=== PATIENT | male | born 1980 | race American Indian/Alaskan Native ===

== ENCOUNTER 2021-08-26 01:20 | Emergency (ER) | payer OTHER ==
[2021-08-26] MEDS ORDERED: HYDROcodone/ACETAMINOPHEN 7.5-325MG TAB PO ONE (01:30)
[2021-08-26] MEDS ORDERED: predniSONE 20 MG TAB PO ONE (01:30)
[2021-08-26] MEDS ORDERED: CLINDAMYCIN 150 MG CAP PO ONE (01:30)
[2021-08-26] MEDS ORDERED: diphenhydrAMINE 25 MG CAP PO ONE (01:31)
[2021-08-26] MEDS ORDERED: FAMOTIDINE 20 MG TAB PO ONE (01:31)
[2021-08-26] MEDS ORDERED: ONDANSETRON 4 MG ODT TAB PO ONE (01:31)
[2021-08-26 01:45] VITALS: BP 156/89
--- NOTE | 2021-08-26 02:05 | Emergency Department Report ---
ED General Adult HPI - General Chief complaint: Allergic Reaction Stated complaint: ALLERGIC REACTION Source: patient Mode of arrival: Ambulatory Limitations: No Limitations - History of Present Illness Initial comments: Patient is a 40-year-old -[place] male with no past medical history presented to the ED with complaint of acute onset persistent painful swollen right mandibular gingiva with premolar and molar toothache for the last 12 hours. Patient states that he has not been able to eat anything because of persistent pain. Patient states that in the last 6 hours, the swelling of the right cheek got worse. Patient denies swollen throat, dysphagia, dysphonia, sore throat, nausea and vomiting, chest pain or shortness of breath, dizziness, syncope, cough, itchy rashes. MD Complaint: swollen gums; swollen lip and dental pain -: Sudden, hour(s) (12) Location: mouth Radiation: non-radiation Severity scale (0 -10): 8 Quality: aching, sharp Consistency: constant Improves with: none Worsens with: eating Associated Symptoms: denies other symptoms, fever/chills. denies: chest pain, cough, diaphoresis, headaches, loss of appetite, malaise, nausea/vomiting, rash, shortness of breath, syncope, weakness Treatments Prior to Arrival: none - Related Data Previous Rx's Medication Instructions Recorded Last Taken Type Acetaminophen [Tylenol] 500 mg PO Q6HR PRN #30 tablet 08/26/21 Unknown Rx Clindamycin [Clindamycin CAP] 300 mg PO Q8H #30 cap 08/26/21 Unknown Rx predniSONE [Deltasone] 40 mg PO QDAY #10 tab 08/26/21 Unknown Rx traMADoL [Ultram] 50 mg PO Q6HR PRN #12 tablet 08/26/21 Unknown Rx Allergies Allergy/AdvReac Type Severity Reaction Status Date / Time NSAIDS (Non-Steroidal Allergy Unknown Verified 08/26/21 01:26 Anti-Inflamma ED Review of Systems ROS: Stated complaint: ALLERGIC REACTION Other details as noted in HPI Constitutional: denies: chills, fever Eyes: denies: eye pain, eye discharge, vision change ENT: dental pain (Painful right mandibular premolar molar teeth), other (Swollen, painful right mandibular gingiva and cheek;). denies: ear pain, thr oat pain, congestion Respiratory: denies: cough, shortness of breath, wheezing Cardiovascular: denies: chest pain, palpitations Endocrine: no symptoms reported Gastrointestinal: denies: abdominal pain, nausea, diarrhea Genitourinary: denies: urgency, dysuria Musculoskeletal: denies: back pain, joint swelling, arthralgia Skin: denies: rash, lesions Neurological: denies: headache, weakness, paresthesias Psychiatric: denies: anxiety, depression Hematological/Lymphatic: denies: easy bleeding, easy bruising ED Past Medical Hx - Medications Home Medications: Home Medications Medication Instructions Recorded Confirmed Last Taken Type Acetaminophen [Tylenol] 500 mg PO Q6HR PRN #30 tablet 08/26/21 Unknown Rx Clindamycin [Clindamycin CAP] 300 mg PO Q8H #30 cap 08/26/21 Unknown Rx predniSONE [Deltasone] 40 mg PO QDAY #10 tab 08/26/21 Unknown Rx traMADoL [Ultram] 50 mg PO Q6HR PRN #12 tablet 08/26/21 Unknown Rx ED Physical Exam - General Limitations: No Limitations General appearance: alert, in no apparent distress - Head Head exam: Present: atraumatic, normocephalic, normal inspection - Eye Eye exam: Present: normal appearance, PERRL, EOMI Pupils: Present: normal accommodation - ENT ENT exam: Present: mucous membranes moist, TM's normal bilaterally, normal external ear exam, other (Swollen, tender right mandibular gingiva with premolar and molar teeth tenderness) - Neck Neck exam: Present: normal inspection, full ROM. Absent: tenderness, lymphadenopathy - Respiratory Respiratory exam: Present: normal lung sounds bilaterally. Absent: respiratory distress, wheezes, rales, rhonchi, chest wall tenderness, accessory muscle use, decreased breath sounds, prolonged expiratory - Cardiovascular Cardiovascular Exam: Present: normal rhythm, tachycardia, normal heart sounds. Absent: systolic murmur, diastolic murmur, rubs, gallop - GI/Abdominal GI/Abdominal exam: Present: soft, normal bowel sounds. Absent: tenderness, guarding, rebound, rigid, hyperactive bowel sounds - Extremities Exam Extremities exam: Present: normal inspection, full ROM, normal capillary refill. Absent: tenderness, pedal edema, joint swelling - Back Exam Back exam: Present: normal inspection, full ROM. Absent: CVA tenderness (L), muscle spasm, paraspinal tenderness - Neurological Exam Neurological exam: Present: alert, oriented X3, CN II-XII intact, normal gait, reflexes normal - Psychiatric Psychiatric exam: Present: normal affect, normal mood - Skin Skin exam: Present: warm, dry, intact, normal color. Absent: rash ED Course Vital Signs 08/26/21 08/26/21 01:23 01:55 Temperature 100.1 F H Pulse Rate 103 H Respiratory 18 14 Rate Blood Pressure 156/89 O2 Sat by Pulse 97 Oximetry ED Medical Decision Making - Medical Decision Making This is a 40-year-old -[place] male with no past medical history presented to the ED with complaint of acute onset persistent painful swollen right mandibular gingiva with premolar and molar toothache for the last 12 hours. Patient states that he has not been able to eat anything because of persistent pain. Patient states that in the last 6 hours, the swelling of the right cheek got worse. In the ED, patient is alert and oriented x3 and is not in any distress. Patient is febrile and tachycardic in triage. Patient was treated for pain in the ED and also started on oral antibiotics, also treated for suspected acute allergic reaction if any as a differential diagnosis. On reevaluation, patient's tachycardia and fever resolved, patient's pain also resolved prior to being discharged home. Patient was discharged home on pain medication and antibiotics and advised to follow-up with his dentist or primary care physician in 7 to 10 days for reevaluation or return to the ED immediately if symptoms get worse. - Differential Diagnosis Dental abscess; gingivitis; allergic reaction; URI; Critical care attestation.: If time is entered above; I have spent that time in minutes in the direct care of this critically ill patient, excluding procedure time. ED Disposition Clinical Impression: Dental abscess, Dental caries, Acute gingivitis Acute allergic reaction Qualifiers: Encounter type: initial encounter Qualified Code(s): T78.40XA - Allergy, unspecified, initial encounter Disposition: HOME / SELF CARE / HOMELESS Is pt being admited?: No Does the pt Need Aspirin: No Condition: Stable Instructions: Allergies, Adult, [id number], Dental Abscess, [id number], Trench Mouth Additional Instructions: Take medication with food, drink plenty of fluids and follow-up with your primary care physician or dentist in 7 to 10 days for reevaluation. Return to the ED immediately if symptoms get worse. Prescriptions: Acetaminophen [Tylenol] 500 mg PO Q6HR PRN #30 tablet PRN Reason: Pain , Severe (7-10) Clindamycin [Clindamycin CAP] 300 mg PO Q8H #30 cap predniSONE [Deltasone] 40 mg PO QDAY #10 tab traMADoL [Ultram] 50 mg PO Q6HR PRN #12 tablet PRN Reason: Pain Referrals: [facility] [Outside] - 7-10 days Time of Disposition: 02:06 Print Language: MOZAMBICAN
== END 2021-08-26 03:14 | disposition home or self-care (01) ==
LOC: ED 01:20
DX: K04.7 Periapical abscess without sinus (principal); T78.40XA Allergy, unspecified, initial encounter; K02.9 Dental caries, unspecified; K05.00 Acute gingivitis, plaque induced; X58.XXXA Exposure to other specified factors, initial encounter; Z90.49 Acquired absence of other specified parts of digestive tract
CPT/HCPCS: 99282; J3490; Q0162

== ENCOUNTER 2021-09-01 00:33 | Emergency (ER) | payer OTHER ==
[2021-09-01 01:03] VITALS: BP 151/104
--- NOTE | 2021-09-01 04:02 | Emergency Department Report ---
ED General Adult HPI - General Chief complaint: Dental/Oral Stated complaint: MOUTH SWOLLEN Source: patient Mode of arrival: Ambulatory Limitations: No Limitations - History of Present Illness Initial comments: Patient is a 40-year-old -[place] male with no past medical history who presents to the ED with complaint of acute onset persistent right mandibular premolar molar toothache with swollen gums for the last 1 week. Patient was recently treated for the same in this ED and is currently on clindamycin 300 mg 3 times a day with pain medications as needed. Patient states that he noticed that the pain and the swelling was getting worse and is return to the ED for evaluation. Patient states that while in the ED there is swollen right mandibular gingival area started draining thick purulent discharge with bad smell. Patient denies dizziness, syncope, nausea and vomiting no chest pain, shortness of breath, abdominal pain, sore throat, headache, fever and chills. MD Complaint: Right mandibular premolar and molar toothache with swollen mandible gingiva -: Sudden, week(s) (1) Location: mouth Radiation: non-radiation Quality: aching, sharp Consistency: constant Improves with: none Worsens with: none Associated Symptoms: denies: confusion, chest pain, cough, diaphoresis, fever/chills, headaches, loss of appetite, malaise, rash, seizure, shortness of breath, syncope, weakness Treatments Prior to Arrival: none - Related Data Previous Rx's Medication Instructions Recorded Last Taken Type Acetaminophen [Tylenol] 500 mg PO Q6HR PRN #30 tablet 08/26/21 Unknown Rx Clindamycin [Clindamycin CAP] 300 mg PO Q8H #30 cap 08/26/21 Unknown Rx predniSONE [Deltasone] 40 mg PO QDAY #10 tab 08/26/21 Unknown Rx traMADoL [Ultram] 50 mg PO Q6HR PRN #12 tablet 08/26/21 Unknown Rx metroNIDAZOLE [Flagyl] 500 mg PO Q12HR #20 tab 09/01/21 Unknown Rx predniSONE [Deltasone] 40 mg PO DAILY #10 09/01/21 Unknown Rx Allergies Allergy/AdvReac Type Severity Reaction Status Date / Time NSAIDS (Non-Steroidal Allergy Unknown Verified 08/26/21 01:26 Anti-Inflamma ED Review of Systems ROS: Stated complaint: MOUTH SWOLLEN Other details as noted in HPI Constitutional: denies: chills, fever Eyes: denies: eye pain, eye discharge, vision change ENT: dental pain (Swollen, painful right mandibular gingiva with premolar and molar toothache). denies: ear pain, throat pain, congestion Respiratory: denies: cough, orthopnea, shortness of breath, wheezing Cardiovascular: denies: chest pain, palpitations Endocrine: no symptoms reported Gastrointestinal: denies: abdominal pain, nausea, vomiting, diarrhea Genitourinary: denies: urgency, dysuria Musculoskeletal: denies: back pain, joint swelling, arthralgia Skin: denies: rash, lesions Neurological: denies: headache, weakness, paresthesias Psychiatric: denies: anxiety, depression Hematological/Lymphatic: denies: easy bleeding, easy bruising ED Past Medical Hx - Medications Home Medications: Home Medications Medication Instructions Recorded Confirmed Last Taken Type Acetaminophen [Tylenol] 500 mg PO Q6HR PRN #30 tablet 08/26/21 Unknown Rx Clindamycin [Clindamycin CAP] 300 mg PO Q8H #30 cap 08/26/21 Unknown Rx predniSONE [Deltasone] 40 mg PO QDAY #10 tab 08/26/21 Unknown Rx traMADoL [Ultram] 50 mg PO Q6HR PRN #12 tablet 08/26/21 Unknown Rx metroNIDAZOLE [Flagyl] 500 mg PO Q12HR #20 tab 09/01/21 Unknown Rx predniSONE [Deltasone] 40 mg PO DAILY #10 09/01/21 Unknown Rx ED Physical Exam - General Limitations: No Limitations General appearance: alert, in no apparent distress - Head Head exam: Present: atraumatic, normocephalic, normal inspection - Eye Eye exam: Present: normal appearance, PERRL, EOMI Pupils: Present: normal accommodation - ENT ENT exam: Present: mucous membranes moist, TM's normal bilaterally, normal external ear exam, other (Swollen, tender right mandibular gingiva; tender right mandibular premolar and molar teeth tenderness with thick purulent discharge) - Neck Neck exam: Present: normal inspection, full ROM. Absent: tenderness, lymphadenopathy - Respiratory Respiratory exam: Present: normal lung sounds bilaterally. Absent: respiratory distress, wheezes, rales, rhonchi, chest wall tenderness, accessory muscle use, prolonged expiratory - Cardiovascular Cardiovascular Exam: Present: normal rhythm, tachycardia, normal heart sounds. Absent: systolic murmur, diastolic murmur, rubs, gallop - GI/Abdominal GI/Abdominal exam: Present: soft, normal bowel sounds. Absent: tenderness, guarding, hyperactive bowel sounds, hypoactive bowel sounds - Extremities Exam Extremities exam: Present: normal inspection, full ROM, normal capillary refill - Back Exam Back exam: Present: normal inspection, full ROM. Absent: tenderness, CVA tenderness (R), muscle spasm, paraspinal tenderness, vertebral tenderness - Neurological Exam Neurological exam: Present: alert, oriented X3, CN II-XII intact, normal gait, reflexes normal - Psychiatric Psychiatric exam: Present: normal affect, normal mood - Skin Skin exam: Present: warm, dry, intact, normal color. Absent: rash ED Course Vital Signs 09/01/21 01:02 Temperature 99.1 F Pulse Rate 113 H Respiratory 18 Rate Blood Pressure 151/104 O2 Sat by Pulse 98 Oximetry ED Medical Decision Making - Medical Decision Making This is a 40-year-old -[place] male with no past medical history who presents to the ED with complaint of acute onset persistent right mandibular premolar molar toothache with swollen gums for the last 1 week. Patient was recently treated for the same in this ED and is currently on clindamycin 300 mg 3 times a day with pain medications as needed. Patient states that he noticed that the pain and the swelling was getting worse and is return to the ED for evaluation. Patient states that while in the ED there is swollen right mandibular gingival area started draining thick purulent discharge with bad smell. In the ED, patient is alert and oriented x3 and is not in any distress. Patient was discharged home on medications for pain and advised to follow-up with the dentist in 7 to 10 days for reevaluation. Patient was advised return to the ED immediately if symptoms get worse. - Differential Diagnosis Dental abscess; gingivitis; dental caries Critical care attestation.: If time is entered above; I have spent that time in minutes in the direct care of this critically ill patient, excluding procedure time. ED Disposition Clinical Impression: Dental abscess, Acute gingivitis Disposition: HOME / SELF CARE / HOMELESS Is pt being admited?: No Does the pt Need Aspirin: No Condition: Stable Instructions: Dental Abscess, [id number], Trench Mouth Additional Instructions: Continue taking the previously prescribed antibiotics and pain medication as needed. Return to the ED immediately if symptoms get worse. Follow-up with a dentist in 7 to 10 days for reevaluation. Prescriptions: predniSONE [Deltasone] 40 mg PO DAILY #10 metroNIDAZOLE [Flagyl] 500 mg PO Q12HR #20 tab Referrals: [facility] [Outside] - 7-10 days Time of Disposition: 04:00 Print Language: KIS[place]
== END 2021-09-01 04:12 | disposition home or self-care (01) ==
LOC: ED 00:33
DX: K04.7 Periapical abscess without sinus (principal); K05.00 Acute gingivitis, plaque induced; Z88.8 Allergy status to other drugs, medicaments and biological substances; Z79.899 Other long term (current) drug therapy
CPT/HCPCS: 99282